=== PATIENT | female | born 1980 | race Caucasian/White ===

== ENCOUNTER 2017-12-06 05:13 | Emergency (ER) | payer MEDICAID ==
[~2017-12-06] VITALS: Ht 162.6 cm; Wt 109.0 kg
[2017-12-06 07:09] LABS: CLARITY URINE TURBID (CLEAR); COLOR URINE YELLOW (YELLOW); KETONES URINE NEGATIVE (NEGATIVE); LEUKOCYTE ESTERASE URINE TRACE (NEGATIVE); NITRITE URINE NEGATIVE (NEGATIVE); OCCULT BLOOD URINE NEGATIVE (NEGATIVE); PROTEIN URINE NEGATIVE (NEGATIVE); SPECIFIC GRAVITY URINE 1.037 (1.005-1.030); UROBILINOGEN URINE 0.2 E.U./dL (0.2-1.0)
[2017-12-06] MEDS ORDERED: MAGNESIUM/ALUMINUM HYDROXIDE/SIMETHICONE 30ML UDC PO STA (11:34)
[2017-12-06] MEDS ORDERED: KETOROLAC 30MG/ML VIAL IV STA (11:34)
[2017-12-06] MEDS ORDERED: VISCOUS LIDOCAINE 2% 15 ML UDC PO STA (11:34)
[2017-12-06] MEDS ORDERED: SODIUM CHLORIDE 0.9% 1,000 ML IV ONE (11:34)
[2017-12-06] MEDS ORDERED: ONDANSETRON HCL 4MG/2ML VIAL IV STA (11:34)
[2017-12-06 12:04] LABS: HEMOGLOBIN. 13.2 g/dL (12.0-16.0); MEAN CORPUSCULAR HEMOGLOBIN 28.4 pg (28.0-32.0); MEAN CORPUSCULAR VOLUME 85.9 fL (81.0-99.0); MEAN PLATELET VOLUME 8.9 fl (7.4-10.4); PLATELET 228 x1000/uL (130-400); RED BLOOD CELL COUNT 4.66 mill/uL (4.2-5.4); RED CELL DISTRIBUTION WIDTH 14.8 % (11.6-14.6)
[2017-12-06 12:10] LABS: PROTHROMBIN TIME 10.5 sec (9.4-11.6)
[2017-12-06 12:18] LABS: CARBON DIOXIDE 25 mEq/L (21-32); CHLORIDE 106 mEq/L (98-107)
[2017-12-06 12:29] LABS: PLATELET ESTIMATE NORMAL
[2017-12-06 13:45] VITALS: BP 131/84
== END 2017-12-06 14:42 | disposition home or self-care (01) ==
LOC: ER 05:13
DX: N39.0 Urinary tract infection, site not specified (principal); R19.7 Diarrhea, unspecified; R11.2 Nausea with vomiting, unspecified; E66.9 Obesity, unspecified; Z90.710 Acquired absence of both cervix and uterus
CPT/HCPCS: 36415; 76700; 80053; 81001; 81025; 83690; 85025; 85610; 96361; 96374; 96375; 99285; J1885; J2405; J7030; Z7610

== ENCOUNTER 2025-09-18 22:56 | Emergency (ER) | payer SELFPAY ==
[~2025-09-18] VITALS: Ht 165.1 cm; Wt 130.0 kg
[2025-09-18 22:59] VITALS: O2SAT 99
[2025-09-18 23:02] VITALS: TEMP 36.8
[2025-09-19] MEDS: IBUPROFEN 600MG TABLET PO ONE (00:04)
[2025-09-19] MEDS ORDERED: IBUP-1455 MT (00:49)
[2025-09-19 01:42] VITALS: BP 142/75; PULSE 84; RESP 16; O2SAT 100
== END 2025-09-19 01:47 | disposition home or self-care (01) ==
LOC: ER 22:56
DX: N63.10 Unspecified lump in the right breast, unspecified quadrant (principal); R59.1 Generalized enlarged lymph nodes; Z90.710 Acquired absence of both cervix and uterus
CPT/HCPCS: 76641; 76881; 99284